=== PATIENT | male | born 1975 | race Caucasian/White ===

== ENCOUNTER 2017-11-27 23:02 | Emergency (ER) | payer OTHER ==
[2017-11-28] MEDS ORDERED: LIDOCAINE VISCOUS 2% 15 ML CUP MUCOUS MEM ONE (00:36)
[2017-11-28] MEDS ORDERED: ACET/COD 300 MG/30 MG STARTER PACK 6 TAB BTL PO STA (00:37)
[2017-11-28] MEDS ORDERED: IBUPROFEN 600 MG STARTER PACK 4 TAB BTL PO STA (00:37)
[2017-11-28] MEDS ORDERED: PENICILLIN VK 500MG STARTER 4 TAB BTL PO STA (00:37)
--- NOTE | 2017-11-28 00:49 | ED ---
ENT HPI - General Chief complaint: Dental/Oral Stated complaint: Dental Pain Time Seen by Provider: 11/27/17 23:51 Source: patient Mode of arrival: ambulatory Limitations: no limitations - History of Present Illness Initial comments: 42-year-old male patient presents to emergency department today for evaluation of right-sided dental pain. Patient states that for the last week he has been having pain to the right lower dentition. States that over the last couple of days the area has become swollen. He believes he may have an abscess. States he has felt chilled over the last couple of days, denies taking his temperature. He denies any trismus or difficulty swallowing. He denies any nausea or vomiting with this. States that he has many broken teeth and a lot of cavities, he was trying to get his dental insurance figured also he can go to the dentist. Patient denies any recent rash, shortness breath, chest pain, abdominal pain, diarrhea, constipation, back pain, numbness, tingling, dizziness , weakness, hematuria, dysuria, urinary urgency, urinary frequency, headache, visual changes, or any other complaints. - Related Data Home Medications Medication Instructions Recorded Confirmed Amoxicillin/Potassium Clav [Amox 1 tab PO BID 03/29/15 03/29/15 Tr-K Clv 875-125 mg Tab] Docusate Sodium [Stool Softener] 1 tab PO DAILY 03/29/15 03/29/15 HYDROcodone/APAP 7.5-325MG [[place] 1 tab PO Q6HR PRN 03/29/15 03/29/15 7.5-325] Indomethacin [Indocin] 25 mg PO TID 03/29/15 03/29/15 Previous Rx's Medication Instructions Recorded Ibuprofen [Motrin] 600 mg PO Q8HR PRN #30 tab 11/28/17 Penicillin V Potassium [Pen Vee K] 500 mg PO Q6H #40 tablet 11/28/17 Allergies Allergy/AdvReac Type Severity Reaction Status Date / Time No Known Allergies Allergy Verified 11/27/17 23:37 Review of Systems ROS Statement: Those systems with pertinent positive or pertinent negative responses have been documented in the HPI. ROS Other: All systems not noted in ROS Statement are negative. Past Medical History Past Medical History: No Reported History History of Any Multi-Drug Resistant Organisms: None Reported Past Surgical History: No Surgical Hx Reported Additional Past Surgical History / Comment(s): left arm Past Psychological History: No Psychological Hx Reported Smoking Status: Current every day smoker Past Alcohol Use History: Occasional Past Drug Use History: Marijuana General Exam Limitations: no limitations General appearance: alert, in no apparent distress, other (Physical well- developed, well-nourished adult male patient in no acute distress. Vital signs upon presentation are temperature 99.0F, pulse 82, respirations 16, blood pressure 113/71, pulse ox 98% on room air.) Eye exam: Present: normal appearance, PERRL, EOMI. Absent: scleral icterus, conjunctival injection, periorbital swelling ENT exam: Present: normal oropharynx, mucous membranes moist, other (Patient has right-sided facial swelling. Patient dentition is in poor condition, multiple broken teeth, at the level of the gingiva. There is gingival erythema. Patient does have noticeable abscess to the right bucchal mucosa.). Absent: normal exam Neck exam: Present: normal inspection. Absent: tenderness, meningismus, lymphadenopathy Respiratory exam: Present: normal lung sounds bilaterally. Absent: respiratory distress, wheezes, rales, rhonchi, stridor Cardiovascular Exam: Present: regular rate, normal rhythm, normal heart sounds. Absent: systolic murmur, diastolic murmur, rubs, gallop, clicks Neurological exam: Present: alert, oriented X3, CN II-XII intact Psychiatric exam: Present: normal affect, normal mood Skin exam: Present: warm, dry, intact, normal color. Absent: rash Course Vital Signs 11/27/17 23:32 Temperature 99.0 F Pulse Rate 82 Respiratory 16 Rate Blood Pressure 113/71 O2 Sat by Pulse 98 Oximetry Procedures - Incision & Drainage Site: oral (Right lower) Size (cm): 2 Amount (mLs): 5 (Viscous lidocaine) Needle Aspiration Performed?: Yes (Punctured with 18-gauge needle) I&D Drainage Obtained: Pus, Blood Patient Tolerated Procedure: well Medical Decision Making - Medical Decision Making 42-year-old male patient presented to the emergency department today for evaluation of of dental abscess to the right lower mouth. Physical examination did reveal 2 cm abscess. We did apply viscous lidocaine we did drain the abscess, I did puncture using 18-gauge needle. Patient tolerated the procedure well. He started on pen VK given pain medication. Is instructed follow up with dentistry as soon as possible. Return parameters discussed in detail. He verbalizes understanding and agrees with this plan. Disposition Clinical Impression: Dental abscess Disposition: HOME SELF-CARE Condition: Good Instructions: Dental Abscess (ED), Toothache (ED) Additional Instructions: Complete antibiotic prescription in full. Take medications as directed. Follow -up with your primary care physician for recheck in 1-2 days. Follow-up with dentistry as soon as possible. Return here immediately for any new, worsening, or concerning symptoms. Prescriptions: Ibuprofen [Motrin] 600 mg PO Q8HR PRN #30 tab PRN Reason: Pain Penicillin V Potassium [Pen Vee K] 500 mg PO Q6H #40 tablet Is patient prescribed a controlled substance at d/c from ED?: No Referrals: Duy Hua MD [Primary Care Provider] - 1-2 days Time of Disposition: 01:27
[2017-11-28 05:58] VITALS: BP 160/89; PULSE 89; RESP 18; TEMP 97.9
== END 2017-11-28 01:50 | disposition home or self-care (01) ==
LOC: EC 23:02
DX: K04.7 Periapical abscess without sinus (principal); S02.5XXA Fracture of tooth (traumatic), initial encounter for closed fracture; F17.200 Nicotine dependence, unspecified, uncomplicated; Z79.1 Long term (current) use of non-steroidal anti-inflammatories (NSAID); Z79.899 Other long term (current) drug therapy; X58.XXXA Exposure to other specified factors, initial encounter
CPT/HCPCS: 41800; 99283